=== PATIENT | female | born 1980 | race Caucasian/White ===

== ENCOUNTER 2017-04-06 17:24 | Emergency (ER) | payer OTHER ==
[~2017-04-06] VITALS: Ht 162.6 cm; Wt 87.5 kg
[~2017-04-06 17:24] MED LIST: ACET-3820 PO; ALBU0.0912 IH; AMYL-13 PO; ASPI81CT89 PO; ATOR40TA PO; DICL-388 PO; EZET10TA1 PO; FERR325E14 PO; FLUO-387 PO; GABA300C PO; HUMSLIDE; HYDR2TAB44 PO; LANTUS SUBQ; LISI-420 PO; LORA-476 PO; LORA10TA19 PO; NAPR500T1 PO; OMEP40EC14 PO; PSEU60TA51 PO; SINE10 PO; THYR90TA PO; VITD1000 PO; ZOLP5TAB7 PO; [UNRECOGNIZED DRUG - CODE] PO; [UNRECOGNIZED DRUG - CODE] PO; [UNRECOGNIZED DRUG - CODE] PO; [UNRECOGNIZED DRUG - CODE] PO
[2017-04-06 18:26] VITALS: BP 187/111
--- NOTE | 2017-04-06 19:14 | NUR ---
PATIENT TO BED 6 AT THIS TIME.
--- NOTE | 2017-04-06 19:20 | NUR ---
36Y F BIB FAMILY C/O GENERALIZED WEAKNESS X2 WEEKS, ABDOMINAL PAIN 06/05, . PT IS AAOX4, NO S/S OF SOB/DISTRESS, LUNG SOUNDS CLEAR BL, DENIES CHEST PAIN, HR EVEN AND REGULAR, ELEVATED BP NOTED; DENIES N/V/D; SKIN IS PINK/WARM/DRY; AMBULATORY WITH WALKER. PATIENT POSITIONED FOR COMFORT; HOB ELEVATED; BEDRAILS UP X2; BED DOWN. ER MD MADE AWARE OF PT STATUS.
[2017-04-06] MEDS ORDERED: NACL 0.9% 1,000 ML IV ONE (19:35)
--- NOTE | 2017-04-06 19:39 | NUR ---
Dr. Alegre evaluating patient at bedside.
[2017-04-06 20:35] LABS: AMPHETAMINE, URINE NEG. ng/ml (NEG <=1000); BARBITURATE, URINE NEG. ng/ml (NEG <=200); BENZODIAZEPINE, URINE NEG. ng/mL (NEG <=200); CANNABINOID, URINE NEG. ng/mL (NEG <=50); COCAINE, URINE NEG. ng/mL (NEG <=300); OPIATE, URINE NEG. ng/mL (NEG <=2000); PHENCYCLIDINE SCREEN,URINE NEG. ng/mL (NEG <=25)
[2017-04-06 20:36] LABS: BASOPHILS % (AUTO) 0.6 % (0.0-2.0); EOSINOPHILS # (AUTO) 0.2 K/uL (0-0.4); EOSINOPHILS % (AUTO) 2.2 % (0.0-4.0); HEMATOCRIT 44.2 % (36-48); HEMOGLOBIN 14.7 g/dL (12.0-16.0); LYMPHOCYTES # (AUTO) 1.9 K/uL (2.5-16.5); LYMPHOCYTES % (AUTO) 25.4 % (20.5-51.1); MEAN CORPUSCULAR HEMOGLOBIN 27 pg (27-31); MEAN CORPUSCULAR HGB CONC 33 g/dL (33-37); MEAN CORPUSCULAR VOLUME 80 fL (80-94); MONOCYTES # (AUTO) 0.3 K/uL (0.8-1.0); MONOCYTES % (AUTO) 4.6 % (1.7-9.3); NEUTROPHILS % (AUTO) 67.2 % (42.2-75.2); PLATELET COUNT (AUTO) 224 K/uL (140-450); RED BLOOD CELL COUNT(AUTO) 5.54 MIL/uL (4.20-5.40); RED CELL DISTRIBUTION WIDTH 13.5 % (11.6-13.7); WHITE BLOOD COUNT (AUTO) 7.4 K/uL (4.8-10.8)
[2017-04-06 20:47] LABS: ALBUMIN 3.7 g/dL (3.4-5.0); ANION GAP 12.3 (8-16); CALCIUM 9.2 mg/dL (8.5-10.1); CARBON DIOXIDE 29.8 mmol/L (21-32); CREATININE 0.7 mg/dL (0.6-1.3); POTASSIUM 4.1 mmol/L (3.5-5.1); TOTAL BILIRUBIN 0.6 mg/dL (0.0-1.0); TOTAL PROTEIN, SERUM 7.9 g/dL (6.4-8.2)
[2017-04-06 20:54] LABS: CREATINE KINASE MB 0.5 ng/mL (0-3.6)
[2017-04-06] MEDS ORDERED: KETOROLAC 30 MG/ML VIAL IVP ONE (21:15)
[2017-04-06] MEDS ORDERED: INSULIN HUMAN REGULAR 100 UNITS/ML 10 ML VIAL IVP ONE (22:05)
[2017-04-06 22:30] VITALS: BP 150/87
--- NOTE | 2017-04-06 22:30 | NUR ---
Patient discharged with v/s stable. Written and verbal after care instructions given and explained. Patient alert, oriented and verbalized understanding of instructions. Ambulatory with steady gait. All questions addressed prior to discharge. ID band removed, IV SITE REMOVED. Patient advised to follow up with PMD. Rx of REGLAN AND PRILOSEC given. Patient educated on , indication of medication including possible reaction and side effects. Opportunity to ask questions provided and answered.
== END 2017-04-06 22:30 | disposition home or self-care (01) ==
LOC: MED 17:24
DX: E11.65 Type 2 diabetes mellitus with hyperglycemia (principal); G89.29 Other chronic pain; R10.9 Unspecified abdominal pain; K21.9 Gastro-esophageal reflux disease without esophagitis; I10 Essential (primary) hypertension; E03.9 Hypothyroidism, unspecified; Z79.82 Long term (current) use of aspirin; Z79.4 Long term (current) use of insulin; Z79.899 Other long term (current) drug therapy; Z98.890 Other specified postprocedural states
CPT/HCPCS: 36415; 80053; 80305; 81002; 81025; 82009; 82550; 82553; 82948; 83690; 84443; 84484; 85025; 93005; 96361; 96374; 96375; 99285; J1815; J1885; J7030